=== PATIENT | female | born 1980 | race Caucasian/White ===

== ENCOUNTER 2019-03-20 05:52 | Day surgery (SDC) | payer OTHER ==
[~2019-03-20] VITALS: Ht 170.2 cm; Wt 86.1 kg
[2019-03-20] MEDS ORDERED: LIDOCAINE 1% MDV 20ML VIAL SQ PRN (06:00)
[2019-03-20] MEDS ORDERED: ceFAZolin 2 GM/D5W 50 ML IV BAG (J0690 PER 500MG) As Ordered ONE (06:38)
[2019-03-20] MEDS ORDERED: BUPIVACAINE HCL 0.5% 30 ML VIAL As Ordered ONE (06:56)
[2019-03-20] MEDS ORDERED: LR 1,000 ML IV ONE (07:00)
[2019-03-20] MEDS ORDERED: MIDAZOLAM INJ 2 MG/2 ML VIAL (J2250) As Ordered ONE (07:02)
[2019-03-20] MEDS ORDERED: fentaNYL 100 MCG/2 ML INJECTION (J3010) As Ordered ONE ×2 (07:02→07:14)
[2019-03-20] MEDS ORDERED: LIDOCAINE 2% INJ 100 MG/5 ML SDV (FOR ANES.) As Ordered ONE (07:13)
[2019-03-20] MEDS ORDERED: PROPOFOL 200 MG/20 ML VIAL As Ordered ONE (07:13)
[2019-03-20] MEDS ORDERED: dexameTHASONE 4 MG/ML 1ML VIAL (J1100) As Ordered ONE (07:14)
[2019-03-20] MEDS ORDERED: ONDANSETRON 4MG/2ML VIAL (J2405) As Ordered ONE (07:14)
[2019-03-20] MEDS ORDERED: ceFAZolin SOD 2 GM in IV 1 EA IV ONE (08:00)
[2019-03-20] MEDS ORDERED: fentaNYL 100 MCG/2 ML INJECTION (J3010) IV ONE (08:00)
[2019-03-20] MEDS ORDERED: MIDAZOLAM INJ 2 MG/2 ML VIAL (J2250) IV ONE (08:00)
[2019-03-20] MEDS ORDERED: ePHEDrine SULFATE 25 MG/5 ML(5MG/ML) SYRINGE As Ordered ONE (08:15)
[2019-03-20] MEDS ORDERED: ACETAMINOPHEN 1000MG 100ML IV BTL (OFIRMEV) (J0131 PER 10MG) As Ordered ONE (08:29)
[2019-03-20] MEDS ORDERED: KETOROLAC 60 MG/2 ML VIAL (J1885) As Ordered ONE (08:30)
[2019-03-20] MEDS: fentaNYL 100 MCG/2 ML INJECTION (J3010) IV PRN ×4 (09:00→09:15)
[2019-03-20] MEDS: oxyCODONE 5MG TAB PO PRN ×2 (09:15→09:45)
[2019-03-20] MEDS ORDERED: ONDANSETRON 4MG/2ML VIAL (J2405) IV PRN (09:15)
[2019-03-20] MEDS ORDERED: LR 1,000 ML IV SCH ×2 (09:15)
[2019-03-20 12:15] VITALS: BP 118/73
--- NOTE | 2019-03-21 10:57 | RO ---
DATE OF SURGERY: 03/20/2019 PREOPERATIVE DIAGNOSIS: Right knee medial meniscus tear. POSTOPERATIVE DIAGNOSIS: Right knee medial meniscus tear. PROCEDURE: 1. Right knee arthroscopy with medial meniscus repair. 2. Right knee arthroscopic microfracture of the intercondylar notch to augment biologic healing of meniscus repair. SURGEON: Dr. Rayray Montanez HYDROLOGICAL TECHNICAL OFFICER: KHARI Peter ANESTHESIA: General with preoperative nerve block. IV FLUIDS: Lactated Ringer's. ESTIMATED BLOOD LOSS: Less than 5 mL. IMPLANTS: [employer] Fast -Fix 360 reverse-curved times three. CLOSURE: Nylon. PROCEDURE: Patient identified in the preoperative holding area. The right leg marked by myself. She had a nerve block from anesthesia. She was brought to the operating room, placed supine on a well-padded operating room (OR) table. General anesthesia was induced. She received appropriate IV antibiotics within 1 hour of incision. Exam under anesthesia revealed range of motion from 0-140 degrees, stable to varus and valgus stress and a grade 1 A Pelon. A well-padded tourniquet was applied to the right thigh. Venodyne boot on the left lower extremity for deep venous thrombosis (DVT) prophylaxis. The right leg was then prepped and draped in normal sterile fashion. Prior to incision time-out was performed per hospital protocol. Gold Olson was present for the entire procedure and participated in all essential portions of procedure. This included patient positioning and draping, holding the arthroscope, holding a spinal needle to reposition the meniscus, assisting with deploying the Fast-Fix 360 device, wound closure, and applying the dressing and brace. The right leg was exsanguinated with an Esmarch bandage, tourniquet inflated to 275 mmHg. The knee was insufflated with lactated Ringer's. A standard anterolateral portal was made with an 11-blade. 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 No loose bodies. There was a ligamentum mucosum obscuring the anterior cruciate ligament (ACL). The medial compartment was entered where there was some fraying of the anterior horn of the medial meniscus and what appeared to be a complex tear in the posterior horn extending to the body of the medial meniscus. A medial portal was created under direct visualization to avoid damage to the medial meniscus. On probing of the medial meniscus the root was noted to be stable and there was increased complexity with free edge tearing, however, the entire posterior horn was unstable consistent with the MRI showing a meniscus capsule junction injury. So, there was a horizontal component and a parrot beak component as it extended to the body. Given that the patient had essentially no arthritis of the medial compartment and she would be getting a subtotal medial meniscectomy I still felt it was worth trying to do a repair. I used a shaver and a meniscal biter to remove approximately 20% of the medial meniscus essentially though the white zone from the posterior horn. The biter was also used to remove the parrot beak fragment. I then used the [employer] Fast-Fix 360 reverse-curved meniscal repair devices. I used a spinal needle just anterior to the medial collateral ligament and I used that to pin the upper leaflet of the posterior horn inferiorly. I then used a total of three of the 360 repair devices starting just medial to the root. The first was passed in a vertical mattress fashion. The pusher cutter was used to tension the suture, which reduced the posterior horn to the capsule nicely, and then the suture was cut. A second 360 device was placed just medial to that. That was placed in a modified vertical mattress fashion. Again the same steps there was tension with the suture cutter, which nicely reduced the posterior horn to the capsule, and then cut. I then switched arthroscopy portals, which gave me better angle to place the third and final repair device at the junction of the posterior horn mostly into the body. Though from that medial portal the implant was then passed in a modified vertical mattress fashion. Again suture was tensioned and then cut. The entire meniscus repair was reprobed and found to be stable. Suction was turned on to the scope and there was no displacement of the medial meniscus into the joint. The ligamentum mucosa had already been debrided with the shaver. Previously I brought the knee to the [id number] position where there was no lateral meniscus tearing and no chondromalacia in the lateral compartment. We then performed a microfracture of the intercondylar notch to improve the healing potential of this repair. The [employer] PowerPick was used to create six drill holes, three medial and three lateral at the intercondylar notch just off the articular cartilage. The tourniquet was let down with excellent reperfusion and blood and marrow was noted to egress from each of the microfracture holes. The knee was ranged from 0-120 degrees. The medial meniscus repair was reinspected and there was no displacement. The knee was irrigated and drained. Portals were closed with nylon suture. Bulky sterile dressing was applied and then the patient placed into a hinged knee brace locked in extension. She was extubated, transferred to the postanesthesia care unit (PACU) in stable condition. Complications none.
== END 2019-03-20 12:25 | disposition home or self-care (01) ==
LOC: M SDC 05:52
PROVIDERS: ATTEND Orthopaedic Surgery
DX: M23.203 Derangement of unspecified medial meniscus due to old tear or injury, right knee (principal); F41.9 Anxiety disorder, unspecified
CPT/HCPCS: 29879; 29882; 64425; 81025; J0131; J0690; J1100; J1885; J2250; J2405; J3010